=== PATIENT | female | born 1995 | race Caucasian/White ===

== ENCOUNTER → 2019-01-29 | Outpatient (CLI) | payer BC ==
[2019-01-29 10:15] LABS: HCT 41.8 % (34.0-46.0); HGB 14.7 gm/dL (11.4-16.0); MCHC 35.2 g/dL (31.0-37.0); Mean Platelet Volume 5.9; Platelet Count 366 k/uL (150-450); RBC 4.75 m/uL (3.80-5.40); RDW 11.6 % (11.5-15.5); WBC 7.6 k/uL (3.8-10.6)
[2019-01-29 10:28] LABS: ALT 36 U/L (9-52); AST 29 U/L (14-36); African American GFR (CKD) >90 (>60 ml/min/1.73 sqM); Albumin 4.6 g/dL (3.5-5.0); Alkaline Phosphatase 55 U/L (38-126); Anion Gap 7 mmol/L; Blood Urea Nitrogen 11 mg/dL (7-17); Calcium 9.6 mg/dL (8.4-10.2); Carbon Dioxide 30 mmol/L (22-30); Chloride 105 mmol/L (98-107); Glucose 95 mg/dL (74-99); Potassium 4.7 mmol/L (3.5-5.1); Sodium 142 mmol/L (137-145); Total Bilirubin 0.8 mg/dL (0.2-1.3); Total Protein 7.4 g/dL (6.3-8.2)
--- NOTE | 2019-01-29 10:56 | CT ---
EXAMINATION TYPE: CT abdomen pelvis w con DATE OF EXAM: 01/29/2019 COMPARISON: NONE HISTORY: 24-year-old female RLQ pain TECHNIQUE: Contiguous axial scanning of the abdomen and pelvis following administration of 100 ml Iso kumar 300 IV contrast. Delayed images through the kidneys and coronal/sagittal reconstructions perform ed. CT DLP: 1137.5 mGycm Automated exposure control for dose reduction was used. FINDINGS: Heart upper limits of normal in size without pericardial effusion. Lung bases clear without pleural e ffusion. Liver borderline enlarged at 17.8 cm. No focal lesion. Portal venous system is patent. No biliary mika jennifer dilatation. Gallbladder, adrenal glands, kidneys, and pancreas appear within normal limits. Spleen borderline enl arged at 13.5 cm with hilar splenule. No dilated small bowel, free fluid, or free air. No mesenteric or retroperitoneal lymphadenopathy. Oral contrast progressed to the hepatic flexure. Mild stool burden. No pericolonic inflammatory mesa e. Normal appendix. Couple borderline to mildly enlarged right lower quadrant mesenteric lymph nodes measuring up to 9 mm , refer to coronal image 36 and 37. Bladder is urine distended. Uterus anteverted. Both ovaries are visualized. Trace right cul-de-sac fr ee fluid likely physiologic. No pelvic lymphadenopathy. Bones: Mild degenerative disc disease L5-S1. IMPRESSION: 1. BORDERLINE HEPATOSPLENOMEGALY (LIVER 17.8 CM AND SPLEEN 13.5 CM). 2. NORMAL APPENDIX. 3. A FEW BORDERLINE TO MILDLY ENLARGED RIGHT LOWER QUADRANT MESENTERIC LYMPH NODES MAY BE SEEN WITH M ESENTERIC ADENITIS. CLINICALLY CORRELATE. 4. TRACE CUL-DE-SAC FREE FLUID LIKELY PHYSIOLOGIC.
== END | disposition home or self-care (01) ==
LOC: RADCTMAIN 08:22
PROVIDERS: ATTEND Physician Assistant
DX: R16.2 Hepatomegaly with splenomegaly, not elsewhere classified (principal); R10.31 Right lower quadrant pain; R59.0 Localized enlarged lymph nodes
CPT/HCPCS: 80053; 85027; 74177; 36415; Q9967 ×2